=== PATIENT | female | born 1940 | race African-American/Black ===

== ENCOUNTER 2023-01-03 07:23 | Emergency (ER) | payer OTHER ==
[~2023-01-03] VITALS: Ht 162.6 cm; Wt 69.0 kg
[2023-01-03 07:24] VITALS: O2SAT 91
[2023-01-03] MEDS ORDERED: MORPHINE SULFATE 4 MG/ML CPJ (NOT FOR IM USE) IV ONE (07:30)
[2023-01-03] MEDS ORDERED: ONDANSETRON HCL 4MG/2ML INJ IV ONE (07:30)
[2023-01-03 07:37] LABS: BASOPHILS % 1.7 % (0.0-2.0); EOSINOPHILS % 6.5 % (0.0-5.0); HEMATOCRIT. 34.2 % (36.0-48.0); HEMOGLOBIN. 10.9 g/dL (12.0-16.0); MEAN CORPUSCULAR HGB CONC 31.8 g/dL (31.0-37.0); MEAN CORPUSCULAR VOLUME 84.9 fL (81.0-99.0); MEAN PLATELET VOLUME 7.9 fl (7.4-10.4); MONOCYTES % 3.8 % (2.0-8.0); PLATELET 222 x1000/uL (130-400); RED BLOOD CELL COUNT 4.03 mill/uL (4.2-5.4); RED CELL DISTRIBUTION WIDTH 19.9 % (11.6-14.6); WHITE BLOOD COUNT 14.4 x1000/uL (4.5-11.0)
[2023-01-03 08:02] LABS: CHLORIDE 98 mEq/L (98-107); INDEX HEMOLYSI 3 (1-3); INDEX ICTERIC 1 (1-4); INDEX LIPEMIC 1 (1-3); POTASSIUM 4.9 mEq/L (3.5-5.1); SODIUM 137 mEq/L (136-145)
[2023-01-03 08:06] LABS: INR 1.1; PARTIAL THROMBOPLASTIN TIME 28.8 sec (23.4-31.0); PROTHROMBIN TIME 11.3 sec (9.6-11.0)
[2023-01-03 08:13] LABS: ALANINE AMINOTRANSFERASE 13 IU/L (13-61); ALBUMIN 3.9 g/dL (3.4-5.0); ASPARTATE AMINOTRANSFERASE 18 IU/L (15-37); BILIRUBIN TOTAL 0.8 mg/dL (0.1-1.0); CALCIUM 8.9 mg/dL (8.5-10.1); CARBON DIOXIDE 26 mEq/L (21-32); GLUCOSE 124 mg/dL (70-105); NT PRO B-TYPE NATRIURETIC PEP 4913 pg/mL (5-125); PROTEIN TOTAL 9.3 g/dL (6.0-8.3); TROPONIN I HIGH SENSITIVITY 36 ng/L (<54); UREA NITROGEN BLOOD 72 mg/dL (7-21)
[2023-01-03 08:32] LABS: CREATININE 12.5 mg/dL (0.6-1.3)
[2023-01-03 10:38] LABS: TROPONIN I HIGH SENSITIVITY 32 ng/L (<54)
[2023-01-03] MEDS ORDERED: FUROSEMIDE 40MG/4ML VIAL IVP ONE (11:15)
[2023-01-03 13:10] VITALS: BP 143/79; PULSE 77; RESP 22; TEMP 98.4
== END 2023-01-03 13:29 | disposition short-term general hospital (02) ==
LOC: ER 07:42
DX: I11.0 Hypertensive heart disease with heart failure (principal); I50.9 Heart failure, unspecified; I12.0 Hypertensive chronic kidney disease with stage 5 chronic kidney disease or end stage renal disease; N18.6 End stage renal disease
CPT/HCPCS: 99291; 96374; 96375; 80053; 83880; 85025; 85610; 85730; 84484; 36415; 71045; 93005; J1940; J2405; J2270